=== PATIENT | male | born 2000 ===

== ENCOUNTER 2022-01-15 13:22 | Emergency (ER) | payer SELFPAY ==
[~2022-01-15] VITALS: Ht 172.7 cm; Wt 66.7 kg
--- NOTE | 2022-01-15 13:42 | NUR ---
PT WAS EVGALUATED BY DR DANIEL. PT WAS D/C'd TO HOME. D/C INSTRUCTIONS GIVEN TO THE PT BY DR DANIEL.
[2022-01-15] MEDS ORDERED: CEPH500C2 PO (13:44)
[2022-01-15] MEDS ORDERED: MUPIROCIN 2% OINT 22 GM TUBE TP ONE (13:45)
[2022-01-15] MEDS ORDERED: IBUP-1955 PO (13:46)
[2022-01-15 13:52] VITALS: BP 133/75
[2022-01-15] MEDS ORDERED: MUPIROCIN 2% OINT 22 GM TUBE ONE (13:55)
== END 2022-01-15 14:01 | disposition home or self-care (01) ==
LOC: ER 13:27
DX: L03.032 Cellulitis of left toe (principal); R03.0 Elevated blood-pressure reading, without diagnosis of hypertension
CPT/HCPCS: A4663

== ENCOUNTER 2022-01-16 00:20 | Emergency (ER) | payer SELFPAY ==
[~2022-01-16] VITALS: Ht 167.6 cm; Wt 66.7 kg
[~2022-01-16 00:20] MED LIST: CEPH500C2 PO; IBUP-1955 PO
[2022-01-16] MEDS ORDERED: LIDOCAINE HCL 2% 20 ML VIAL IJ ONE (00:30)
--- NOTE | 2022-01-16 01:17 | NUR ---
freed pts ingrorn nail on R great toe from surrounding tissue, after throughly cleaning and anestatising site of wound. RN performed wound care on toe by cleaning, applying xeroform, guaze and tubular stocking netting and covered with clean sock, pt then demonstrated procedure back to RN. pt demostrated ability to perform appropriate aftercare for wound and verbalised S/S to be aware of that would nessacitate immediate medical intervention, including S/S of infection and signifigantly detoriated ability to move independently, agmost other topics. pt issued ABX during prior visit, RN explained importance to completing prescribed course of medicine completely and as prescribed, pt able to expalin why the former is important. pt out of department under own power, pt taken home byalexandrialy, MISTY noted
[2022-01-16 04:26] VITALS: BP 116/61
== END 2022-01-16 01:21 | disposition home or self-care (01) ==
LOC: ER 00:26
DX: L60.0 Ingrowing nail (principal); L08.9 Local infection of the skin and subcutaneous tissue, unspecified
CPT/HCPCS: 11765; 99283; J3490; A4663